=== PATIENT | male | born 1955 | race African-American/Black ===

== ENCOUNTER 2017-08-09 13:47 | Emergency (ER) | payer OTHER ==
[~2017-08-09] VITALS: Ht 167.6 cm; Wt 52.2 kg
--- NOTE | 2017-08-09 14:00 | NUR ---
BIBRA FROM HOME DT MULTIPLE SKIN TEARS SP FALL. PATIENT NOTED WITH SKIN TEARS ON ALL EXTREMITIES, LEFT SHOULDER, LEFT EAR. DENIES KO,. PATIENT'S VV. AFEBRILE.
[2017-08-09] MEDS ORDERED: ONDANSETRON HCL/PF 4 MG/2 ML VIAL IVP ONE (14:30)
[2017-08-09] MEDS ORDERED: IV NS 0.9% 1,000 ML BAG IV ONE (14:30)
--- NOTE | 2017-08-09 14:33 | NUR ---
TARUN TARAS SISTER CALLED LEFT PHONE NUMBER. CELL
[2017-08-09] MEDS ORDERED: ONDANSETRON HCL/PF 4 MG/2 ML VIAL ONE ×2 (14:36→19:27)
[2017-08-09 14:59] LABS: EOSINOPHILS # (AUTO) 0.1 /CMM (0.0-0.7); LYMPHOCYTES % (AUTO) 12.7 % (20.0-44.0); NEUTROPHILS # (AUTO) 5.2 /CMM (1.8-8.9); WHITE BLOOD COUNT (AUTO) 6.7 K/uL (4.3-11.0)
[2017-08-09 15:01] LABS: BASOPHILS % (AUTO) 0.7 % (0.0-2.0); HEMATOCRIT 33 % (39-51); HEMOGLOBIN 11.4 g/dL (13.5-17.5); LYMPHOCYTES # (AUTO) 0.8 /CMM (0.8-4.8); MEAN CORPUSCULAR HEMOGLOBIN 33 PG (26.0-33.0); MEAN CORPUSCULAR HGB CONC 34 g/dl (31.0-36.0); MEAN CORPUSCULAR VOLUME 97 fL (80-96); MONOCYTES # (AUTO) 0.6 /CMM (0.1-1.30); MONOCYTES % (AUTO) 8.5 % (2.0-12.0); NEUTROPHILS % (AUTO) 77.1 % (43.0-81.0); PLATELET COUNT (AUTO) 185 /CMM (150-450); RDW COEFFICIENT OF VARIATION 13.3 (11.5-15.0); RED BLOOD CELL COUNT(AUTO) 3.44 MIL/uL (4.5-6.0)
[2017-08-09 15:08] LABS: CALCIUM, SERUM 8.4 mg/dL (8.5-10.1); CREATININE 0.6 mg/dL (0.6-1.3); POTASSIUM 3.8 mmol/L (3.5-5.1)
[2017-08-09 15:12] LABS: INR 0.98 (0.87-1.13); PROTHROMBIN TIME 10.2 SECS (9.5-12.7)
[2017-08-09 15:14] LABS: ALBUMIN 3.2 g/dL (3.4-5.0); BILIRUBIN,DIRECT 0.2 mg/dL (0.0-0.2); BILIRUBIN,TOTAL 0.9 mg/dL (0.2-1.0); TOTAL PROTEIN, SERUM 6.9 g/dL (6.4-8.2)
--- NOTE | 2017-08-09 15:43 | NUR ---
CALLED [facility], FAXED OVER FACE SHEET AND REPORT OF CT SCAN.
[2017-08-09] MEDS ORDERED: IV NS 0.9% 250 ML IV ONE (15:53)
[2017-08-09] MEDS ORDERED: IOHEXOL-350 100 ML VIAL IV ONE (15:53)
--- NOTE | 2017-08-09 15:54 | NUR ---
CALLED [facility] TO FOLLOW UP EXPECTING A CALL BACK FROM [facility]
[2017-08-09] MEDS ORDERED: CEFAZOLIN 1 GM in IV D5W 50 ML IV ONE (16:00)
--- NOTE | 2017-08-09 16:03 | NUR ---
ANIKET FROM [facility] CALLED BACK CANT ACCEPT PATIENT DUE NO AVAILABLE BEDS.
--- NOTE | 2017-08-09 16:18 | NUR ---
CALLED [facility] CHARGE NURSE, REGARDING TRANSFER. PATIENT WILL BE ACCEPTING BY DR PIZARRO.
--- NOTE | 2017-08-09 16:27 | NUR ---
CALLED [facility] FOR TRANSPORT ETA OF 1844 WAS GIVEN.
--- NOTE | 2017-08-09 16:29 | NUR ---
[facility] TRIP NUMBER [id number]
[2017-08-09] MEDS ORDERED: VANCOMYCIN 1 GM in IV D5W 250 ML IV ONE (16:30)
[2017-08-09] MEDS ORDERED: PROPOFOL 100 ML IV ONE (19:15)
--- NOTE | 2017-08-09 19:15 | NUR ---
PATIENT MOVED ROOM [address] HOWE AT BEDSIDE.
--- NOTE | 2017-08-09 19:17 | NUR ---
FACEGUARD REMOVED, MAINTAINED PATENT AIRWAY. RT AT BEDSIDE. PATIENT PLACED ON NONREBREATHER AT 15LPM PER DR HOWE'S ORDERS, KEPT HOB ELEVATED. PATIENT IS SATTING AT THIS TIME AT 99-100%. WILL CLOSELY MONITOR.
--- NOTE | 2017-08-09 19:24 | NUR ---
PT TRANSFERRED TO ER BED 5 PER MD REQUEST.
[2017-08-09] MEDS ORDERED: ONDANSETRON HCL/PF - ER 4 MG/2 ML VIAL IV ONE (19:30)
--- NOTE | 2017-08-09 19:50 | NUR ---
FOR REPORT AND ASK FOR FATOUMATA
--- NOTE | 2017-08-09 19:55 | NUR ---
ENDORSED AND PICKED UP BY [facility] STAFF. VSS. NAD NOTED.
--- NOTE | 2017-08-09 20:02 | NUR ---
REPORT GIVEN TO FATOUMATA GLASS AT [facility]. BELONGINGS OF PATIENT WITH EMS.
[2017-08-09 20:03] VITALS: BP 177/65
== END 2017-08-09 20:06 | disposition short-term general hospital (02) ==
LOC: ER 13:48
DX: S06.5X9A Traumatic subdural hemorrhage with loss of consciousness of unspecified duration, initial encounter (principal); S06.6X9A Traumatic subarachnoid hemorrhage with loss of consciousness of unspecified duration, initial encounter; S06.4X9A Epidural hemorrhage with loss of consciousness of unspecified duration, initial encounter; S02.0XXA Fracture of vault of skull, initial encounter for closed fracture; S42.002A Fracture of unspecified part of left clavicle, initial encounter for closed fracture; S72.141A Displaced intertrochanteric fracture of right femur, initial encounter for closed fracture; S02.82XA Fracture of other specified skull and facial bones, left side, initial encounter for closed fracture; S02.19XA Other fracture of base of skull, initial encounter for closed fracture; G93.40 Encephalopathy, unspecified; F10.129 Alcohol abuse with intoxication, unspecified; H05.20 Unspecified exophthalmos; G93.89 Other specified disorders of brain; M48.02 Spinal stenosis, cervical region; Z88.0 Allergy status to penicillin; Z85.828 Personal history of other malignant neoplasm of skin; Z85.22 Personal history of malignant neoplasm of nasal cavities, middle ear, and accessory sinuses; Z91.030 Bee allergy status; W18.30XA Fall on same level, unspecified, initial encounter; W17.89XA Other fall from one level to another, initial encounter; Y93.89 Activity, other specified; Y92.89 Other specified places as the place of occurrence of the external cause; Y99.8 Other external cause status
CPT/HCPCS: 36415; 70450; 70486; 70496; 70498; 71010; 72125; 73020; 73502; 80048; 80076; 85025; 85730; 93005; 96361; 96365; 96375; 96376; 99291; A4606; A6402; G0480; J2405 ×3; J3370; J3490; J7050; J7060; Q9967; Z7610; J0690; J7030